=== PATIENT | male | born 1950 | race Caucasian/White ===

== ENCOUNTER 2017-11-19 06:41 | Emergency (ER) | payer OTHER ==
[2017-11-19] MEDS ORDERED: Adacel (T-DAP) 0.5 ML VIAL ONE (08:37)
== END 2017-11-19 09:00 | disposition home or self-care (01) ==
LOC: SCSER 06:41
DX: L03.113 Cellulitis of right upper limb (principal); E78.5 Hyperlipidemia, unspecified; F32.9 Major depressive disorder, single episode, unspecified; K21.9 Gastro-esophageal reflux disease without esophagitis; I10 Essential (primary) hypertension; Z79.899 Other long term (current) drug therapy
CPT/HCPCS: 90471; 90715